=== PATIENT | female | born 1965 | race Caucasian/White ===

== ENCOUNTER 2024-05-03 20:19 | Inpatient (IN) | payer OTHER, SELFPAY ==
[2024-05-03 13:09] VITALS: BP 159/88
[2024-05-03 13:29] LABS: % Basophils 0.2 % (0-2); % Eosinophils 0.4 % (0-6); % Immature Granulocytes 0.6 % (0-0.5); % Lymphocytes 8.7 % (20.5-51.1); % Monocytes 6.1 % (1.7-9.3); Absolute Eosinophils 0.1 10^3/uL (0-0.7); Absolute Immature Granulocytes 0.1 10^3/uL (0-0.05); Absolute Lymphocytes 1.5 10^3/uL (1.2-3.4); Absolute Neutrophils 14.1 10^3/uL (1.4-6.5); Hematocrit 46.7 % (37.0-47.0); Mean Corp Hgb Conc. 32.1 g/dL (33.0-37.0); Mean Corpuscular Hgb 26.1 pg (27.0-31.0); Mean Corpuscular Volume 81.4 fL (81.0-99.0); Mean Platelet Volume 8.5 fL (7.4-10.4); Nucleated Red Blood Cells % 0 %; Platelet Count 359 10^3/uL (130-400); Red Blood Cell Count 5.74 10^6/uL (4.20-5.40); Red Cell Dist. Width 15.4 % (11.5-14.5); White Blood Cell Count 16.8 10^3/uL (4.8-10.8)
[2024-05-03 13:50] LABS: ALT (SGPT) 30 U/L (0-35); AST (SGOT) 24 U/L (14-36); Albumin 4.7 g/dl (3.5-5.0); Alkaline Phosphatase 74 U/L (38-126); Blood Urea Nitrogen 15 mg/dl (7-17); Calcium 9.7 mg/dl (8.4-10.2); Carbon Dioxide 25 mmol/L (22-30); Chloride 102 mmol/L (98-107); Glucose 125 mg/dl (70-99); Lipase 79 U/L (23-300); Potassium 4.9 mmol/L (3.5-5.1); Sodium 138 mmol/L (135-145); Total Bilirubin 1.5 mg/dl (0.2-1.3); Total Protein 7.6 g/dl (6.3-8.2); eGFR > 60.00
[2024-05-03 15:16] VITALS: BP 150/69
--- NOTE | 2024-05-03 15:36 | ED.GENMED ---
History of Present Illness
<Jessica Hoff PA-C - Last Filed: 05/03/24 18:40>
General
Chief Complaint: Abdominal Pain
Source: patient
Exam Limitations: none
Time Seen by Provider: 05/03/24 15:05
Nursing documentation reviewed up to this point in time: agreed with
History of Present Illness
History of Present Illness:
59-year-old female presenting with abdominal pain. Patient reports left lower quadrant abdominal pain radiating to her left low back intermittently over this weekend. Today while she was at work�she had a severe onset pain in her left lower
quadrant and then felt very 'chilly '. Pain today has persisted and been more constant prompting her visit to the emergency department. Patient does report mild constipation over the past few days.
Patient denies any known fever, nausea/vomiting, dysuria, hematuria, diarrhea. Patient denies any history of kidney stones.
Review of Systems
<Jessica Hoff PA-C - Last Filed: 05/03/24 18:40>
Review of Systems
Allergies reviewed?: Yes
All Other Systems: ROS reviewed and negative except as documented in HPI and ROS
Phy Exam
<Jessica Hoff PA-C - Last Filed: 05/03/24 18:40>
Physical Exam
Physical Exam:
Vitals: Febrile to 102F. Hypertensive, otherwise vital signs stable.
General: Patient is uncomfortable due to pain.
Skin: Warm and dry, no rashes or lesions
Head: Normocephalic, atraumatic
Eyes: Sclera nonicteric. EOMs intact. No nystagmus.
Throat: Protecting airway
Neck: Normal ROM, no cervical spine tenderness, no meningismus
Cardiac: Regular rate and rhythm, no murmurs.
Pulm: Normal respiratory effort, no wheezes, rales, rhonchi heard on exam.
Abdomen: Abdomen soft. Moderate abdominal tenderness in left lower quadrant and left flank with voluntary guarding. No tenderness McBurney's point. Negative [place] sign. Left CVA tenderness.
Extremities: No evidence of cyanosis or edema. Great distal pulses
Neuro: AAOx3. CN II-XII intact. No focal neurologic deficits.
Psychiatric: Normal affect.
Course
<Jessica Hoff PA-C - Last Filed: 05/03/24 18:40>
Orders/Labs/Results
Orders:
Orders
05/03/24 13:18
CMP [Comprehensive Metabolic Panel] Urgent
Complete Blood Count/With Diff Urgent
Lipase Urgent
05/03/24 15:33
0.9% Sodium Chloride 1000 ml [Nss] 1,000 ml IV BOLUS
HYDROmorphone [Dilaudid] 0.5 mg IV NOW STA
Ondansetron Injectable [Zofran] 4 mg IV NOW STA
05/03/24 15:34
CT Abd/pelvis W Iv Cont Urgent
Comment:
Reason For Exam: Left lower abdominal pain
05/03/24 15:35
Acetaminophen [Tylenol] 1,000 mg PO NOW STA
05/03/24 16:04
Lactic Acid Q4H
Comment: CANCEL 2nd LACTIC ACID IF 1st LACTIC ACID IS LESS THAN 2
Urinalysis Reflex To Culture Urgent
Date Specimen was Collected: 05/03/24
Time Specimen was Collected: 15:45
Blood Culture Q30M
BETTY Source: Blood/Venous
Specimen Description:
Blood Culture Q30M
BETTY Source: Blood/Venous
Specimen Description:
05/03/24 17:29
0.9% Sodium Chloride 1000 ml [Nss] 1,000 ml IV BOLUS
HYDROmorphone [Dilaudid] 1 mg IV NOW STA
LevoFLOXacin 500 MG/100 ML [Levaquin] 500 mg in 100 ml IV NOW
MetroNIDAZOLE 500 MG/100 ML [Flagyl 500 mg] 100 ml IV NOW
05/03/24 20:00
Lactic Acid Q4H
Comment: CANCEL 2nd LACTIC ACID IF 1st LACTIC ACID IS LESS THAN 2
Abnormal Lab Results
05/03/24
13:18
WBC 16.8 H 10^3/uL
(4.8-10.8)
RBC 5.74 H 10^6/uL
(4.20-5.40)
MCH 26.1 L pg
(27.0-31.0)
MCHC 32.1 L g/dL
(33.0-37.0)
RDW 15.4 H %
(11.5-14.5)
Abs Immat Gran (auto) 0.1 H 10^3/uL
(0-0.05)
Absolute Neuts (auto) 14.1 H 10^3/uL
(1.4-6.5)
Absolute Monos (auto) 1.0 H 10^3/uL
(0.1-0.6)
Immature Gran % 0.6 H %
(0-0.5)
Neutrophils % 84.0 H %
(42.2-75.2)
Lymphocytes % 8.7 L %
(20.5-51.1)
Glucose 125 H mg/dl
(70-99)
Total Bilirubin 1.5 H mg/dl
(0.2-1.3)
05/03/24 13:18
05/03/24 13:18
Vital Signs
Initial and Last Documented VS:
Initial Vital Signs
Temp Pulse Resp BP Pulse Ox
99.3 F 91 18 159/88 98
05/03/24 13:09 05/03/24 13:09 05/03/24 13:09 05/03/24 13:09 05/03/24 13:09
Last Documented Vital Signs
Temp Pulse Resp BP Pulse Ox
99.7 F 91 18 159/88 98
05/03/24 17:54 05/03/24 13:09 05/03/24 13:09 05/03/24 13:09 05/03/24 13:09
<De Reyna, DO - Last Filed: 05/03/24 19:08>
Orders/Labs/Results
Orders:
Orders
05/03/24 13:18
CMP [Comprehensive Metabolic Panel] Urgent
Complete Blood Count/With Diff Urgent
Lipase Urgent
05/03/24 15:33
0.9% Sodium Chloride 1000 ml [Nss] 1,000 ml IV BOLUS
HYDROmorphone [Dilaudid] 0.5 mg IV NOW STA
Ondansetron Injectable [Zofran] 4 mg IV NOW STA
05/03/24 15:34
CT Abd/pelvis W Iv Cont Urgent
Comment:
Reason For Exam: Left lower abdominal pain
05/03/24 15:35
Acetaminophen [Tylenol] 1,000 mg PO NOW STA
05/03/24 16:04
Lactic Acid Q4H
Comment: CANCEL 2nd LACTIC ACID IF 1st LACTIC ACID IS LESS THAN 2
Urinalysis Reflex To Culture Urgent
Date Specimen was Collected: 05/03/24
Time Specimen was Collected: 15:45
Blood Culture Q30M
BETTY Source: Blood/Venous
Specimen Description:
Blood Culture Q30M
BETTY Source: Blood/Venous
Specimen Description:
05/03/24 17:29
0.9% Sodium Chloride 1000 ml [Nss] 1,000 ml IV BOLUS
HYDROmorphone [Dilaudid] 1 mg IV NOW STA
LevoFLOXacin 500 MG/100 ML [Levaquin] 500 mg in 100 ml IV NOW
MetroNIDAZOLE 500 MG/100 ML [Flagyl 500 mg] 100 ml IV NOW
05/03/24 20:00
Lactic Acid Q4H
Comment: CANCEL 2nd LACTIC ACID IF 1st LACTIC ACID IS LESS THAN 2
Abnormal Lab Results
05/03/24
13:18
WBC 16.8 H 10^3/uL
(4.8-10.8)
RBC 5.74 H 10^6/uL
(4.20-5.40)
MCH 26.1 L pg
(27.0-31.0)
MCHC 32.1 L g/dL
(33.0-37.0)
RDW 15.4 H %
(11.5-14.5)
Abs Immat Gran (auto) 0.1 H 10^3/uL
(0-0.05)
Absolute Neuts (auto) 14.1 H 10^3/uL
(1.4-6.5)
Absolute Monos (auto) 1.0 H 10^3/uL
(0.1-0.6)
Immature Gran % 0.6 H %
(0-0.5)
Neutrophils % 84.0 H %
(42.2-75.2)
Lymphocytes % 8.7 L %
(20.5-51.1)
Glucose 125 H mg/dl
(70-99)
Total Bilirubin 1.5 H mg/dl
(0.2-1.3)
05/03/24 13:18
05/03/24 13:18
Vital Signs
Initial and Last Documented VS:
Initial Vital Signs
Temp Pulse Resp BP Pulse Ox
99.3 F 91 18 159/88 98
05/03/24 13:09 05/03/24 13:09 05/03/24 13:09 05/03/24 13:09 05/03/24 13:09
Last Documented Vital Signs
Temp Pulse Resp BP Pulse Ox
99.7 F 91 18 159/88 98
05/03/24 17:54 05/03/24 13:09 05/03/24 13:09 05/03/24 13:09 05/03/24 13:09
<Jessica Hoff PA-C - Last Filed: 05/03/24 18:40>
MDM/Problems Addressed
Differential Diagnosis Includes:
Not limited to: Diverticulitis, pyelonephritis, kidney stone, appendicitis, complicated diverticulitis (bowel perforation, abscess), bowel obstruction
MDM/Problems Addressed:
59-year-old female presenting with left lower quadrant abdominal pain and fever. Patient with temp of 102 on arrival to emergency department. No vomiting, urinary symptoms, diarrhea. Physical exam as above. Patient moderate uncomfortable due to
pain. Patient does have point tenderness to left lower quadrant and some CVA tenderness on left side. Cardiopulmonary assessment unremarkable. Basic labs were initiated in triage which show a leukocytosis of 16.8 with left shift. Chemistry
without clinically significant abnormalities. Differential broad other considerations include diverticulitis, pyelonephritis, kidney stone, appendicitis, versus other. Will obtain urinalysis to rule out infection and CT abdomen/pelvis with IV
contrast for further evaluation. Will treat pain and give IV fluids. Will closely monitor and reassess
Update: Patient much more comfortable following pain medication. urinalysis without any evidence of infection. CT report reviewed which does show diverticulitis of descending colon with area of contained extraluminal air concerning for possible
microperforation. Given given patient is febrile with a leukocytosis and possible complicated diverticulitis-will admit to hospital for IV antibiotics and further management. Patient accepted to colorectal service in stable condition. Patient
seen with attending physician.
Chronic conditions affecting care:
N/A
Acute Exacerbation and/or Progression of Chronic Illness:
Acute diverticulitis
<Jessica Hoff PA-C - Last Filed: 05/03/24 18:40>
*Radiology
Radiology exam reviewed: preliminary read by ED provider and radiology read reviewed
*Pulse Oximetry
Patient hypoxic: no
*EKG
Interpreted by ED Provider?: NA
*Casino Duty Manager Interpretation
Rate: normal
Interpretation: normal
Heart Rate: 88
Rhythm: sinus
*Critical Care Note
Total Time (30-74mins, 75-104mins- exclusive of procedures): Not Applicable
<Jessica Hoff PA-C - Last Filed: 05/03/24 18:40>
Patient Management
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
Escalation/DeEscalation of care consider admission/obs:
Admit to colorectal surgery for IV antibiotics/further man
<De Reyna DO - Last Filed: 05/03/24 19:08>
Update Note
Update Note:
5:[address] concerning for diverticulitis with possible microperforation. Will start Levaquin and Flagyl. Colorectal surgery made aware.
ED Attending Note
<Jessica Hoff PA-C - Last Filed: 05/03/24 18:40>
-
Portions of this chart may have been created with voice recognition software.� Occasional wrong word or��sound alike� substitutions may have occurred due to the inherent limitations of voice recognition software.
<De Reyna DO - Last Filed: 05/03/24 19:08>
ED Attending Note
Patient seen and examined by attending physician: Yes
I performed the substantive portion of visit, reviewed & personally made and approve the management plan that is documented in note by myself or KAREEN.: Yes
ED Attending Note:
I have seen and evaluated the patient with a [id number] encounter. I have spoken to the advance practicer provider and involved in the medical history, the physical exam, medical decision making.
Evaluation and management service: agree unless noted differently below.
Results interpretation: agree unless noted differently below.
Focused HPI: 59-year-old female presenting with abdominal pain and low-grade fevers. Patient states she did have a normal bowel movement recently but has been complaining of constipation
Physical exam: Uncomfortable. Point tenderness to left lower quadrant
Medical Decision Making: Will obtain CT to rule out any evidence of diverticulitis versus possible kidney stone. Will obtain urinalysis to rule out any evidence of bilateral
Discharge Plan
Departure
Patient Disposition: Admit
Date of Disposition: 05/03/24
Time of Disposition: 17:33
Admit to: Med/Surg
Presentation/result/management discussed w/ accepting MD/DO: Colorectal surgery
Discharge Problem:
Diverticulitis large intestine
Prescriptions:
No Action
latanoprost 0.005 % Drops
1 drp BOTH EYES HS
sertraline 100 mg Tablet
100 mg PO DAILY
acetaminophen [Tylenol Extra Strength] 500 mg Tablet
1,000 mg PO Q6HPRN PRN (Reason: mild pain)
ibuprofen [Advil] 200 mg Tablet
400 mg PO Q6HPRN PRN (Reason: mild pain)
Metamucil 3.4 gram/5.4 gram Powder
1 tsp PO DAILYPRN PRN (Reason: constipation)
hydroxyzine HCl 10 mg Tablet
10 mg PO DAILYPRN PRN (Reason: depression)
Interventions
Interventions:
*Risk Screen - Suicide Last Done: 05/03/24 13:09
*Neglect/Abuse Screening Last Done: 05/03/24 13:09
TO-Zmkzjw-Rqwmnafubn Assessment Last Done: 05/03/24 16:16
Discharge Date and Time
Print Language: ERITREAN
[2024-05-03] MEDS: NSS 1000 IV ×2 (15:52→17:48)
[2024-05-03] MEDS: TYLENOL 1000 MG PO (15:53)
[2024-05-03] MEDS: ZOFRAN 4 MG IV (15:53)
[2024-05-03] MEDS: DILAUDID 0.5 MG IV ×2 (15:53→22:31)
[2024-05-03 16:00] VITALS: BP 133/68
[2024-05-03 16:30] LABS: Lactic Acid 1.3 mmol/L (0.7-2.0)
[2024-05-03 16:48] LABS: Urine Albumin Negative (Neg - Trace); Urine Bilirubin Negative (Negative); Urine Character Clear (Clear); Urine Color Yellow; Urine Glucose Negative (Negative); Urine Ketone Negative (Negative); Urine Leukocyte Negative (Negative); Urine Nitrite Negative (Negative); Urine Occult Blood Negative (Negative); Urine Specific Gravity 1.015 (<1.030); Urine Urobilinogen Negative (Neg - 1+)
[2024-05-03] MEDS: DILAUDID 1 MG IV (17:46)
[2024-05-03] MEDS: FLAGYL 500 MG 100 IV (17:48)
--- NOTE | 2024-05-03 19:07 | HPS.HSE ---
Family Physician
-
Family Physician: * NONE
Chief Complaint
-
abdominal pain
History of Present Illness
59 yo F with LLQ pain for 2-3 days as well as fevers and chills. Was constipated as well. No nausea or emesis. In ER WBC elevated at 16.[address] scan shows distal descending diverticulitis with small amount contained extraluminal air
nearby. No free air or abscess. No obstruction. The patient has never had diverticulitis before. Colonoscopy within the last [address] Pickard may have shown polyps; ?diverticula. I was asked to evaluate patient in ER.
Medical History
Past Medical History
Past Medical History: Reports Psychiatric (depression)
Past Surgical History: Reports Other (?breast surgery)
Additional Past Surgical History:
no prior abdomianal operations
Social History
Tobacco: Non-smoker
Alcohol: Occasional
Personal:
Living: With Family
Employment: Employed
Family History
Family History: Not pertinent
Allergies / Home Medications
Allergies reflects when Allergies were last updated in [facility].
Home Medications with original date entered in [employer]
Allergy/Medication List:
NKDA
Meds as listed
Review of Systems
-
History Source: Patient
A 12 point ROS was completed and negative except as noted: Yes
Constitutional: Reports Fever
Abdomen/GI: Reports Abdominal Pain
Physical Exam
Vital Signs
Vital Signs
Temp Pulse Resp BP Pulse Ox
99.7 F 91 18 159/88 98
05/03/24 17:54 05/03/24 13:09 05/03/24 13:09 05/03/24 13:09 05/03/24 13:09
Physical Exam
General: Well Nourished
HEENT: NormoCephalic
Respiratory: Clear
Cardiac: Regular Rhythm
Breast: Deferred by me
GI: Tender (LLQ moderate)
Musculoskeletal: No Clubbing, No Cyanosis and No Edema
Skin: Warm and Dry
Neuro: AO x 3
Psych: Calm
Laboratory Results
-
05/03/24 13:18
05/03/24 13:18
Laboratory Results
Lactic Acid 1.3 mmol/L (0.7-2.0) 05/03/24 16:04
Total Bilirubin 1.5 mg/dl (0.2-1.3) H 05/03/24 13:18
AST 24 U/L (14-36) 05/03/24 13:18
ALT 30 U/L (0-35) 05/03/24 13:18
Alkaline Phosphatase 74 U/L (38-126) 05/03/24 13:18
Lipase 79 U/L (23-300) 05/03/24 13:18
Data Reviewed
-
CT Scan: Image Personally Visualized and interpreted, Report Reviewed by me, Discussed with Physician, Discussed with Patient and Discussed with Family
Lab Data: Labs Reviewed by me, Discussed with Physician, Discussed with Patient and Discussed with Family
Impression/Plan
-
IMPRESSION:
59 yo F with first attack of diverticultis (distal descending with contained perforation) with associated pain/tenderness and fever. No need for urgent surgical intervention.
PLAN:
1. admit.
2. IVFs.
3. IV antibiotics.
4. npo except ice chips.
[2024-05-03] MEDS: LEVAQUIN 100 IV (19:29)
[2024-05-03 21:48] VITALS: BP 130/59; BMI 40.3
[2024-05-03] MEDS: NORMOSOL-R/PLASMALYTE-A 1000 IV (22:13)
[2024-05-03] MEDS: TORADOL 10 MG IV (23:36)
[2024-05-04] MEDS: FLAGYL 500 MG 100 IV ×3 (02:57→17:28)
[2024-05-04] MEDS: DILAUDID 0.25 MG IV ×3 (03:21→15:40)
[2024-05-04] MEDS: TORADOL 10 MG IV ×3 (05:35→17:28)
[2024-05-04 06:25] LABS: % Basophils 0.2 % (0-2); % Eosinophils 0.3 % (0-6); % Immature Granulocytes 0.4 % (0-0.5); % Lymphocytes 14.1 % (20.5-51.1); Absolute Immature Granulocytes 0.1 10^3/uL (0-0.05); Absolute Lymphocytes 1.7 10^3/uL (1.2-3.4); Absolute Monocytes 0.9 10^3/uL (0.1-0.6); Absolute Neutrophils 9.5 10^3/uL (1.4-6.5); Hematocrit 38.7 % (37.0-47.0); Hemoglobin 12.7 g/dL (12.0-16.0); Mean Corp Hgb Conc. 32.8 g/dL (33.0-37.0); Mean Corpuscular Hgb 27.5 pg (27.0-31.0); Mean Corpuscular Volume 83.8 fL (81.0-99.0); Mean Platelet Volume 8.8 fL (7.4-10.4); Nucleated Red Blood Cells % 0 %; Platelet Count 282 10^3/uL (130-400); Red Blood Cell Count 4.62 10^6/uL (4.20-5.40); Red Cell Dist. Width 15.4 % (11.5-14.5); White Blood Cell Count 12.2 10^3/uL (4.8-10.8)
[2024-05-04 06:43] LABS: Blood Urea Nitrogen 12 mg/dl (7-17); Calcium 8.3 mg/dl (8.4-10.2); Carbon Dioxide 26 mmol/L (22-30); Chloride 104 mmol/L (98-107); Estimated Creatinine Clearance 91 ml/min; Glucose 110 mg/dl (70-99); Magnesium 1.9 mg/dl (1.6-2.3); Potassium 4.3 mmol/L (3.5-5.1); Sodium 139 mmol/L (135-145); eGFR > 60.00
--- NOTE | 2024-05-04 07:31 | PTCARENOTE ---
Patient arrived on unit @2132 via stretcher, stand and pivot from stretcher to bed. Patient AAOx3, c/o 9/10 pain to LLQ. OPTOMETRIST PRESIDENT/PRACTICE OWNER made aware, prn dilaudid added for severe pain. Dilaudid given as ordered, skin assessment completed, oriented to unit, call
subramanian within reach.
[2024-05-04 07:41] VITALS: BP 122/64
--- NOTE | 2024-05-04 08:44 | W.PN.CRS1 ---
Today's Communication / Plan
-
continue antibiotics/ivfs
npo with chips
Assessment/Plan
-
IMPRESSION:
59 yo F with first attack of diverticulitis (distal descending with contained perforation) with associated pain/tenderness and fever, exam improving
-Monitor WBC, trending down, now 12.2 from 16.8.
-Continue NPO with ice chips
-Continue IV antibiotics - Flagyl/Levaquin
-OOB as tolerated
-IVFs while NPO
-No plans for urgent surgery at this time, however, if she were to worsen, she would require a colectomy with colostomy creation
Subjective Data
Subjective Data
Date of Service: May 04, 2024
Patient states she is still in pain but it has improved since admission. She denies nausea or vomiting. She is having flatus. She has no hunger but she is thirsty.
Objective Data
-
Vital Signs
Temp Pulse Resp BP Pulse Ox
100.4 F H 68 20 122/64 95
05/04/24 07:41 05/04/24 07:41 05/04/24 07:41 05/04/24 07:41 05/04/24 07:41
Intake & Output
05/03/24 05/04/24 05/05/24
06:59 06:59 06:59
Intake Total 885 / 885
Output Total
Balance 884 / 884
Intake:
IV fluids (Total) 785 / 785
IV piggybacks 100 / 100
Output:
Urine, Voided
Lab Results
05/04/24 05:35
05/04/24 05:35
Physical Exam
-
General: No Acute Distress and AOx3
Abdomen: Soft and Tender (Right sided - mild, LLQ- moderate (improved))
Skin: Warm and Dry
[2024-05-04] MEDS: ZOLOFT 100 MG PO (09:44)
[2024-05-04] MEDS: NSS (PRESERVATIVE FREE) 10 ML IV (09:44)
[2024-05-04] MEDS: PROTONIX IV 40 MG IV (09:44)
[2024-05-04] MEDS: NORMOSOL-R/PLASMALYTE-A 1000 IV ×2 (12:41→22:53)
[2024-05-04 15:25] VITALS: BP 121/63
--- NOTE | 2024-05-04 16:50 | CM ---
Alert awake oriented patient who lives with her Cristobal who lives in a 2 story home with with 7 steps to enter. Bed and bathroom on first floor.
She is independent in driving and in all activities of daily living.Offered VN she declined.
No adaptive devices
Never had VN/SNF
Pharmacy [facility]
PCP Dr Churchill
PLAN Home no needs
[2024-05-04] MEDS: LOVENOX 40 MG SC (17:28)
[2024-05-04] MEDS: LEVAQUIN 100 IV (19:07)
[2024-05-04] MEDS: DILAUDID 0.5 MG IV (19:44)
[2024-05-04 23:50] VITALS: BP 118/68
[2024-05-05] MEDS: TORADOL 10 MG IV ×4 (00:24→17:34)
[2024-05-05] MEDS: FLAGYL 500 MG 100 IV ×3 (02:40→17:29)
[2024-05-05 05:41] LABS: % Basophils 0.2 % (0-2); % Eosinophils 1.1 % (0-6); % Immature Granulocytes 0.5 % (0-0.5); % Lymphocytes 16.6 % (20.5-51.1); % Monocytes 6.8 % (1.7-9.3); % Neutrophils 74.8 % (42.2-75.2); Absolute Eosinophils 0.1 10^3/uL (0-0.7); Absolute Lymphocytes 1.4 10^3/uL (1.2-3.4); Absolute Monocytes 0.6 10^3/uL (0.1-0.6); Absolute Neutrophils 6.4 10^3/uL (1.4-6.5); Hematocrit 36.6 % (37.0-47.0); Hemoglobin 11.7 g/dL (12.0-16.0); Mean Corpuscular Hgb 26.1 pg (27.0-31.0); Mean Corpuscular Volume 81.7 fL (81.0-99.0); Mean Platelet Volume 8.6 fL (7.4-10.4); Nucleated Red Blood Cells % 0 %; Platelet Count 269 10^3/uL (130-400); Red Blood Cell Count 4.48 10^6/uL (4.20-5.40); White Blood Cell Count 8.5 10^3/uL (4.8-10.8)
[2024-05-05 06:04] LABS: Blood Urea Nitrogen 14 mg/dl (7-17); Carbon Dioxide 25 mmol/L (22-30); Chloride 104 mmol/L (98-107); Estimated Creatinine Clearance 104 ml/min; Glucose 93 mg/dl (70-99); Potassium 3.9 mmol/L (3.5-5.1); Sodium 140 mmol/L (135-145); eGFR > 60.00
[2024-05-05 07:46] VITALS: BP 116/61
[2024-05-05] MEDS: PROTONIX IV 40 MG IV (08:15)
[2024-05-05] MEDS: ZOLOFT 100 MG PO (08:16)
[2024-05-05] MEDS: NSS (PRESERVATIVE FREE) 10 ML IV (08:16)
[2024-05-05] MEDS: NORMOSOL-R/PLASMALYTE-A 1000 IV (08:23)
--- NOTE | 2024-05-05 09:24 | PN.CDI ---
CDI
- -
CDI:
Physician Documentation Request
Admit Date: 05/03/24 20:19
Dear Surgery,
Patient admitted with diverticulitis.
Please review the following and provide your response in the progress notes.
Clinical Indicators:
Height: 5' 4'
Weight: 234 lbs
BMI:40.3
If possible, please provide an associated diagnosis related to the abnormal BMI, such as:
Obese
Overweight
BMI is not significant
Other
BMI > or = to 40
Overweight
Obesity:
Due to excess calories
Drug induced
Due to other cause
Severe or morbid obesity:
With alveolar hypoventilation (Obesity hypoventilation syndrome)
Without alveolar hypoventilation
Use of terms such as suspected, likely, concern for, or probable (associated with a specific diagnosis that is being evaluated, monitored, or treated as if it exists) are acceptable and can be coded in the inpatient setting, when documented at the
time of discharge.
Thank you,
Yuly Beavers RN, BSN
CDI Specialist
Available via [employer] text
Please use your independent medical judgment in providing your response.
--- NOTE | 2024-05-05 09:43 | W.PN.CRS1 ---
Today's Communication / Plan
-
advance diet
Assessment/Plan
-
IMPRESSION:
59 yo F with first attack of diverticulitis (distal descending with contained perforation) with associated pain/tenderness and fever, exam improving
-WBC normalized, 8.5.
-Advance diet to clears, if tolerates, advance to fulls.
-Continue IV antibiotics - Flagyl/Levaquin
-OOB as tolerated
-D/C IVFs when tolerating po.
-No plans for urgent surgery at this time, however, if she were to worsen, she would require a colectomy with colostomy creation
Subjective Data
Subjective Data
Date of Service: May 05, 2024
Patient states she virtually has no pain. She has no nausea or vomiting. She has bowel function. She is not that hungry.
Objective Data
-
Vital Signs
Temp Pulse Resp BP Pulse Ox
98.5 F 69 17 116/61 93
05/05/24 07:46 05/05/24 07:46 05/05/24 07:46 05/05/24 07:46 05/05/24 07:46
Intake & Output
05/04/24 05/05/24 05/06/24
06:59 06:59 06:59
Intake Total 1085 / 1085
Output Total
Balance 1084 / 1084
Intake:
Oral fluids 0 / 0
IV fluids (Total) 785 / 785
IV piggybacks 300 / 300
Output:
Urine, Voided
Other:
Number of approximated MODERATE 2
amounts of urine
Number of approximated LARGE 1
amounts of urine
Lab Results
05/05/24 05:16
05/05/24 05:16
Physical Exam
-
General: No Acute Distress and AOx3
Abdomen: Soft, Non Distended and Tender (mild LLQ)
Skin: Warm and Dry
[2024-05-05 15:13] VITALS: BP 134/65
[2024-05-05] MEDS: LOVENOX 40 MG SC (17:29)
--- NOTE | 2024-05-05 17:34 | CM ---
Pt tolerating advancement in diet.
She believes she will be dc tomorrow.
Offered VN she declined need.
PLAN Home no needs
[2024-05-05] MEDS: LEVAQUIN 100 IV (18:43)
[2024-05-05 23:55] VITALS: BP 114/52
[2024-05-06] MEDS: TORADOL 10 MG IV ×3 (00:46→13:15)
[2024-05-06] MEDS: FLAGYL 500 MG 100 IV ×2 (01:15→09:33)
[2024-05-06 06:00] VITALS: BMI 41.0
[2024-05-06 07:58] VITALS: BP 151/83
--- NOTE | 2024-05-06 08:44 | W.PN.CRS1 ---
Addendum entered and electronically signed by Juliana De Jesus PA-C 05/06/24 13:19:
Her BMI is 40.3. This is considered obese.
Upon admission, the patient was septic, which has now resolved.
Original Note:
Today's Communication / Plan
-
low residue
likely d/c later today
Assessment/Plan
-
IMPRESSION:
59 yo F with first attack of diverticulitis (distal descending with contained perforation) with associated pain/tenderness and fever, exam improving
-WBC normalized, 8.5, yesterday. Afebrile.
-Advance diet to low residue.
-Continue IV antibiotics - Flagyl/Levaquin. Will finish course as an outpatient.
-OOB as tolerated
-Likely discharge later today if tolerates a low residue diet. [facility] paperwork to be filled out today.
Subjective Data
Subjective Data
Date of Service: May 06, 2024
Patient states she is feeling much improved. Her pain is minimal. She has bowel function. She denies nausea or vomiting.
Objective Data
-
Vital Signs
Temp Pulse Resp BP Pulse Ox
97.8 F 59 16 151/83 96
05/06/24 07:58 05/06/24 07:58 05/06/24 07:58 05/06/24 07:58 05/06/24 07:58
Intake & Output
05/05/24 05/06/24 05/07/24
06:59 06:59 06:59
Intake Total 1085 / 1085 3290 / 3290
Output Total
Balance 1084 / 1084 3290 / 3290
Intake:
Oral fluids 0 / 0 1989
IV fluids (Total) 785 / 785 1000 / 1000
IV piggybacks 300 / 300 300 / 300
Output:
Urine, Voided
Other:
Number of approximated MODERATE 2 3
amounts of urine
Number of approximated LARGE 1 3
amounts of urine
Lab Results
05/05/24 05:16
05/05/24 05:16
Physical Exam
-
General: No Acute Distress and AOx3
Abdomen: Soft, Non Distended and Tender (LLQ- mild)
Skin: Warm and Dry
[2024-05-06] MEDS: PROTONIX IV 40 MG IV (09:26)
[2024-05-06] MEDS: ZOLOFT 100 MG PO (09:29)
[2024-05-06] MEDS: NSS (PRESERVATIVE FREE) 10 ML IV (09:32)
--- NOTE | 2024-05-06 09:49 | W.DS.TRANS ---
DC Summary - Community Health Worker
-
Discharge Instructions:
Discharge Diagnosis/Procedures diverticulitis
Diet Low Residue
Activity As tolerated
Driving Restrictions As prior to admission
Bathing Restrictions None
Instructions: Low Fiber Diet
Diverticulitis (DC)
Stand-Alone Forms:
Changes to Home Medications: Yes
Discharge Medications:
DC Medications w/original date entered in [employer]
acetaminophen 500 mg tablet (Tylenol Extra Strength) 1,000 mg PO Q6HPRN PRN mild pain 05/03/24
hydroxyzine HCl 10 mg tablet 10 mg PO DAILYPRN PRN depression 05/03/24
ibuprofen 200 mg tablet (Advil) 400 mg PO Q6HPRN PRN mild pain 05/03/24
latanoprost 0.005 % eye drops 1 drp BOTH EYES HS Eye Condition 05/03/24
sertraline 100 mg tablet 100 mg PO DAILY Depression 05/03/24
amoxicillin 875 mg-potassium clavulanate 125 mg tablet 1 tab PO Q12H 10 days #20 tabs 05/06/24
Home Medication Changes
amoxicillin 875 mg-potassium clavulanate 125 mg tablet 1 tab PO Q12H 10 days #20 tabs 05/06/24
Pending Results: No
--- NOTE | 2024-05-06 11:11 | CM ---
MD entered order for discharge.
Pt will drive her home.
Offered VN she declined need.
PLAN Home no needs
--- NOTE | 2024-05-06 12:39 | PN.CDI ---
CDI
- -
CDI:
Physician Documentation Request
Admit Date: 05/03/24 20:19
Dear Surgery,
Patient admitted with diverticulitis.
Laboratory Tests
05/03/24
13:18
WBC 16.8 H
05/03/24
16:15
Temp 102.7 F H
05/03/24
13:09 05/03/24
16:15 05/03/24
17:30
Pulse 91 100 103
05/03/24
15:17 05/03/24
15:45 05/03/24
17:07
Resp Rate 23 24
Please clarify which of the following most accurately describes the status of the patient's infection:
Sepsis, POA
- Systemic manifestations of infection, with 2 or more SIRS criteria which include:
- Fever >100.4 degrees F or hypothermia < 96.8 degrees F
- Leukocytosis - WBC > 12,000 or leukopenia - WBC < 4,000 or > 10% bands
- Tachycardia > 90 beats per minute
- Tachypnea - RR > 20 breaths per minute or PaCO2 , 32mmHg
Source: Merck Manual 2012
Localized Infection Only, Without Systemic Illness
Other
Use of terms such as suspected, likely, concern for, or probable (associated with a specific diagnosis that is being evaluated, monitored, or treated as if it exists) are acceptable and can be coded in the inpatient setting, when documented at the
time of discharge.
Thank you,
Yuly Beavers RN, BSN
CDI Specialist
Available via [facility] text
Please use your independent medical judgment in providing your response.
[2024-05-06 13:10] VITALS: BP 129/77
--- NOTE | 2024-05-06 13:42 | W.DCSUMMARY ---
Discharge Summary
Discharge Data
Date of Admission: 05/03/24
Date of Discharge: 05/06/24
-
Pending Results: No
Hospital Course
59-year-old female presented to [facility] ER complaining of 2 to 3 days of fevers and chills and constipation. In the ER her WBC was 16.8 and her Tmax was 102.7. CT scan showed distal descending diverticulitis with a small amount of
contained extraluminal air nearby. She was admitted to the medical surgical floor and started on IV antibiotics. She was n.p.o. for 1 day and her diet was slowly advanced from a clear liquid diet to a low residue diet. Her WBC normalized. Her
left lower quadrant pain slowly improved until it was mild in nature prior to discharge. On the day of discharge she started a low residue diet and tolerated without difficulty. It was determined the patient can be discharged home. Discharge
instructions were discussed with patient. [facility] paperwork was completed prior to discharge. All questions answered.
Discharge Plan
-
Patient Disposition: Home (Routine Discharge)
Discharge Diagnosis/Procedures: diverticulitis
Diet: Low Residue
Activity: As tolerated
Driving Restrictions: As prior to admission
Bathing Restrictions: None
Instructions: Low Fiber Diet, Diverticulitis (DC)
Referrals:
Joe Lebron MD [Active] - in two to three weeks
Additional Discharge Medication Instructions: Please follow up with your PCP in 1 week.
Tylenol or Ibuprofen as needed for pain.
Prescriptions:
New
amoxicillin-pot clavulanate 875-125 mg tablet
1 tab PO Q12H 10 Days Qty: 20 0RF
Continued
latanoprost 0.005 % Drops
1 drp BOTH EYES HS
sertraline 100 mg Tablet
100 mg PO DAILY
acetaminophen [Tylenol Extra Strength] 500 mg Tablet
1,000 mg PO Q6HPRN PRN (Reason: mild pain)
ibuprofen [Advil] 200 mg Tablet
400 mg PO Q6HPRN PRN (Reason: mild pain)
hydroxyzine HCl 10 mg Tablet
10 mg PO DAILYPRN PRN (Reason: depression)
Discontinued
Metamucil 3.4 gram/5.4 gram Powder
1 tsp PO DAILYPRN PRN (Reason: constipation)
Discharge Orders:
Discharge Patient (As Directed); Ordered 05/06/24
Ordered By: Juliana De Jesus
Discharge Date and Time
Discharge Date/Time: 05/06/24 13:34
Print Language: [id number]
== END 2024-05-06 13:34 | disposition home or self-care (01) | DRG 872 ==
LOC: 3 WEST ACU 20:19
PROVIDERS: Emergency Medicine; Physician Assistant; ADMITTING PHYSICIAN Surgery; EMERGENCY PHYSICIAN Student in an Organized Health Care Education/Training Program
DX: A41.9 Sepsis, unspecified organism (principal); K57.32 Diverticulitis of large intestine without perforation or abscess without bleeding; Z68.41 Body mass index [BMI] 40.0-44.9, adult; E66.9 Obesity, unspecified
CPT/HCPCS: 74177; 80048; 80053; 81003; 83605; 83690; 83735; 85025; 87040; 96361; 96365; 96375; 96376; 99285; Q9967

== ENCOUNTER 2024-09-01 06:28 | Day surgery (SDC) | payer OTHER, SELFPAY | END 2024-09-01 09:11 | disposition home or self-care (01) | LOC: GI 06:28 | PROVIDERS: ATTENDING PHYSICIAN Surgery | DX: Z12.11 Encounter for screening for malignant neoplasm of colon (principal); K57.30 Diverticulosis of large intestine without perforation or abscess without bleeding; K64.9 Unspecified hemorrhoids; Z86.0100 Personal history of colon polyps, unspecified | CPT/HCPCS: G0105 ==